=== PATIENT | female | born 2000 | race Caucasian/White ===

== ENCOUNTER 2022-10-30 17:07 | Emergency (ER) | payer OTHER ==
[2022-10-30 17:44] VITALS: BP 142/66; O2SAT 100
[2022-10-30 18:27] LABS: BASOPHILS # (AUTO) 0.1 10^3/uL (0.0-0.1); BASOPHILS % (AUTO) 0.7 %; EOSINOPHILS # (AUTO) 0.1 10^3/uL (0.0-0.7); EOSINOPHILS % (AUTO) 0.8 %; HCT - HEMATOCRIT 40.8 % (37.0-47.0); HGB - HEMOGLOBIN 13.2 g/dL (12.0-16.0); LYMPHOCYTES # (AUTO) 2.5 10^3/uL (1.5-3.5); LYMPHOCYTES % (AUTO) 20.2 %; MEAN CORPUSCULAR HEMOGLOBIN 28.6 pg (27.0-31.0); MEAN CORPUSCULAR HGB CONC 32.4 g/dL (32.0-36.0); MEAN CORPUSCULAR VOLUME 88.3 fL (81.0-99.0); MEAN PLATELET VOLUME 11.9 fL (7.9-10.8); MONOCYTES # (AUTO) 0.8 10^3/uL (0.0-1.0); MONOCYTES % (AUTO) 6.4 %; NEUTROPHILS # (AUTO) 8.7 10^3/uL (1.5-6.6); NEUTROPHILS % (AUTO) 71.7 %; PLT - PLATELET COUNT 219 10^3/uL (130-450); RED BLOOD COUNT 4.62 10^6/uL (4.20-5.40); RED CELL DISTRIBUTION WIDTH 12.7 % (12.0-15.0); WHITE BLOOD COUNT 12.2 x10^3/uL (4.8-10.8)
[2022-10-30 18:40] LABS: ALBUMIN 4.6 g/dL (3.2-5.5); ALBUMIN/GLOBULIN RATIO 1.6 (1.0-2.2); BILIRUBIN,TOTAL 0.3 mg/dL (0.2-1.0); CALCIUM 9.4 mg/dL (8.5-10.3); CREATININE 0.7 mg/dL (0.6-1.3); POTASSIUM 3.5 mmol/L (3.5-4.5); TOTAL PROTEIN 7.4 g/dL (6.4-8.9)
--- NOTE | 2022-10-30 19:10 | ED Physician Documentation ---
History of Present Illness - Stated complaint Stated Complaint: PREG/BLEDDING - Chief complaint Chief Complaint: Back Pain - History obtained from History obtained from: Patient, Family - History of Present Illness Timing: Today Pain level max: 0 Pain level now: 0 - Additonal information Additional information: Patient is a 23-year-old female 3 para 1 who presents to the emergency department stating she is approximately 5 to 6 weeks . She states that she had vaginal bleeding earlier today that is decreasing now. No nausea or vomiting. No fevers. No chills. No pelvic pain. No abdominal pain. No urinary symptoms. Nothing makes it better or worse. Review of Systems Constitutional: denies: Fever, Chills Respiratory: denies: Cough GI: denies: Nausea, Vomiting, Diarrhea : denies: Dysuria, Frequency, Hesitancy Skin: denies: Rash Musculoskeletal: denies: Neck pain, Back pain Neurologic: denies: Headache PD PAST MEDICAL HISTORY - Present Medications Home Medications: Ambulatory Orders Medication Instructions Recorded Confirmed Pnv 119/Iron Fum/Folic Acid 1 each PO DAILY 10/30/22 10/30/22 [ 19 Tablet] - Allergies Allergies/Adverse Reactions: Allergies Allergy/AdvReac Type Severity Reaction Status Date / Time No Known Drug Allergies Allergy Verified 10/30/22 17:31 PD ED PE NORMAL - Vitals Vital signs reviewed: Yes - General General: Alert and oriented X 3, No acute distress - HEENT HEENT: PERRL, Moist mucous membranes - Neck Neck: Supple, no meningeal sign - Cardiac Cardiac: RRR, Strong equal pulses - Respiratory Respiratory: No respiratory distress, Clear bilaterally - Abdomen Abdomen: Soft, Non tender, Non distended - Female Female : Pt declined - Derm Derm: Warm and dry, No rash - Extremities Extremities: No edema, No calf tenderness / cord - Neuro Neuro: Alert and oriented X 3 - Psych Psych: Normal mood, Normal affect Results - Vitals Vitals: Vital Signs - 24 hr 10/30/22 17:33 Temperature 37.5 C Heart Rate 95 Respiratory 18 Rate Blood Pressure 142/66 H O2 Saturation 100 Oxygen O2 Source Room air - Labs Labs: Laboratory Tests 10/30/22 10/30/22 10/30/22 18:20 18:20 19:20 WBC 12.2 H RBC 4.62 Hgb 13.2 Hct 40.8 MCV 88.3 MCH 28.6 MCHC 32.4 RDW 12.7 Plt Count 219 MPV 11.9 H Neut # (Auto) 8.7 H Lymph # (Auto) 2.5 [place] # (Auto) 0.8 Eos # (Auto) 0.1 Baso # (Auto) 0.1 Absolute Nucleated RBC 0.00 Nucleated RBC % 0.0 Sodium 138 Potassium 3.5 Chloride 104 Carbon Dioxide 28 Anion Gap 6.0 BUN 12 Creatinine 0.7 Estimated GFR (MDRD) 103 Glucose 83 Calcium 9.4 Total Bilirubin 0.3 AST 15 ALT 13 Alkaline Phosphatase 73 Total Protein 7.4 Albumin 4.6 Globulin 2.8 Albumin/Globulin Ratio 1.6 Lipase 27 Beta HCG, Quant 1216.1 Urine Color YELLOW Urine Clarity HAZY Urine pH 6.5 Ur Specific [place] 1.025 Urine Protein NEGATIVE Urine Glucose (UA) NEGATIVE Urine Ketones NEGATIVE Urine Occult Blood LARGE H Urine Nitrite NEGATIVE Urine Bilirubin NEGATIVE Urine Urobilinogen 0.2 (NORMAL) Ur Leukocyte Esterase NEGATIVE Urine RBC 6-10 H Urine WBC 6-10 H Ur Squamous Epith Cells MOD Squamous H Urine Bacteria Moderate H Urine Mucus Moderate Strands Ur Microscopic Review INDICATED Urine Culture Comments NOT INDICATED - Rads (name of study) OB ultrasound first trimester Relevant Findings:: Final report received, See rad report PD Medical Decision Making - ED course Complexity details: reviewed results, re-evaluated patient, considered differential, d/w patient, d/w family ED course: Patient is a 22-year-old female with vaginal bleeding affecting early . Her hCG is 1200. Her ultrasound has evidence of an IUP with an estimated gestational age of 5 weeks 5 days. Recommend short-term follow-up. She will follow-up with her OB in 2 to 3 days for repeat hCG. Bleeding has decreased in the emergency department. No significant pain. No evidence of ectopic pr egnancy. Patient counseled regarding signs and symptoms for which I believe and urgent re-evaluation would be necessary. Patient with good understanding of and agreement to plan and is comfortable going home at this time This document was made in part using voice recognition software. While efforts are made to proofread this document, sound alike and grammatical errors may occur. Departure - Departure Disposition: 01 Home, Self Care Clinical Impression: Vaginal bleeding affecting early Condition: Good Instructions: ED Miscarriage Poss Follow-Up: Your,doctor in 3 days [Other] Comments: Your hCG level today is 1216. This should be rechecked in approximately 3 days with your OB/primary care provider. Your ultrasound shows a estimated gestational age of approximately 5 weeks and 5 days. It is recommended that you have a repeat ultrasound in about a week. As we discussed this could be an early miscarriage, but also may be a normal . Will depend largely on your next hCG level and repeat ultrasound. Please return if you worsen PROCEDURE: OB First Trimester w/TV INDICATIONS: 6 weeks preg vag bleed OUTSIDE/PRIOR DATING DATA: Last menstrual period (LMP): 09/12/2022. LMP-based estimated date of delivery (MARC): 06/19/2023. First dating scan (date and location): 10/30/2022. TECHNIQUE: Real-time scanning was performed of the fetus and maternal pelvic organs, with image documentation. Endovaginal scanning was also performed to better visualize the fetus and maternal ovaries. COMPARISON: None. FINDINGS: Intrauterine gestational sac present. Mean gestational sac diameter 0.63 cm. A yolk sac is present. Embryo: Questionable pole measuring 0.21 cm corresponding to gestational age 5 weeks 5 days. Heart rate: Not expected. Other: No perigestational fluid collection. Measurement variability in dating: +/- 4 weeks by LMP, +/- 7 days by mean sac diameter (use before 6 weeks gestation if crown-rump length not able to be measured), +/- 5 days by crown-rump length (6- 12 weeks gestation). Maternal organs: Ovaries appear within normal limits. Left corpus luteum. IMPRESSION: 1. Intrauterine gestational sac. Possible pole. Estimated gestational age 5 weeks 5 days. No cardiac motion at this time. 2. No perigestational hemorrhage. Recommend short-term follow-up OB ultrasound to confirm crown-rump length and cardiac motion. Discharge Date/Time: 10/30/22 19:20
[2022-10-30 19:29] LABS: BILIRUBIN,URINE NEGATIVE (NEGATIVE); GLUCOSE, URINE (UA) NEGATIVE (NEGATIVE); KETONES,URINE (UA) NEGATIVE (NEGATIVE); LEUKOCYTE ESTERASE, URINE NEGATIVE (NEGATIVE); NITRITE,URINE NEGATIVE (NEGATIVE); OCCULT BLOOD,URINE LARGE (NEGATIVE); PH,URINE 6.5 PH (5.0-7.5); PROTEIN,URINE NEGATIVE (NEGATIVE); UROBILINOGEN,URINE 0.2 (NORMAL) E.U./dL (NORMAL)
[2022-10-30 19:32] LABS: CLARITY,URINE HAZY (CLEAR)
[2022-10-30 19:54] LABS: BACTERIA,URINE Moderate /HPF (None Seen); MUCUS,URINE Moderate Strands; SQUAMOUS EPITHELIAL CELL,UR MOD Squamous (<= Few)
== END 2022-10-30 19:20 | disposition home or self-care (01) ==
LOC: ED 17:07
DX: O20.9 Hemorrhage in early pregnancy, unspecified (principal); Z3A.01 Less than 8 weeks gestation of pregnancy
CPT/HCPCS: 36415; 80053; 81001; 81003; 83690; 84702; 85025; 87086; 99283; 99284